=== PATIENT | male | born 1950 | race African-American/Black ===

== ENCOUNTER 2021-08-06 19:00 | Emergency (ER) | payer MEDICARE ==
[2021-08-06] MEDS ORDERED: Ondansetron PF 4 MG/2 ML Vial ONE (19:40)
[2021-08-06] MEDS ORDERED: Morphine 4 MG/ML VIAL ONE (19:40)
[2021-08-06 19:47] LABS: #Eosinphils 0.1 10x3/uL (0.0-0.5); #Neutrophils 6.7 10x3/uL (1.5-8.4); %Basophils 0.4 % (0.0-2.0); %Lymphocytes 23.4 % (18.0-47.0); %Monocytes 9.5 % (0.0-10.0); %Neutrophils 65.2 % (40.0-75.0); Hemoglobin 14.4 g/dL (13.5-17.5); Mean Corpuscular HGB CONC 32.4 g/dL (32.0-36.0); Mean Corpuscular Hemoglobin 29.4 pg (27.0-33.0); Mean Corpuscular Volume 90.6 fl (81.2-95.1); Mean Platelet Volume 11.2 fl (7.4-10.4); Platelet Count 163 10x3/uL (150-450); RBC Distribution Width 13.2 % (11.5-14.5); White Blood Cell (WBC) Count 10.3 10x3/uL (3.5-10.5)
[2021-08-06 20:01] LABS: ALT (SGPT) 66 U/L (8-55); AST (SGOT) 68 U/L (5-34); Alkaline Phosphatase 95 U/L (40-110); Anion Gap 18 mmol/L (10-20); BUN (Urea Nitrogen) 18 mg/dL (8.4-25.7); Bilirubin, Total 0.3 mg/dL (0.2-1.2); Calc. Creatinine Clearance 0 mL/min (70-130); Carbon Dioxide 23 mmol/L (23-31); Chloride 104 mmol/L (98-107); Globulin 3.3 g/dL (2.4-3.5); Glucose 142 mg/dL (83-110); Lipase 39 U/L (8-78); Potassium 3.5 mmol/L (3.5-5.1); Protein, Total 7.3 g/dL (5.8-8.1); Sodium 141 mmol/L (136-145)
[2021-08-06] MEDS ORDERED: Esmolol 2,500 MG/250 ML 250 ML ONE (20:07)
[2021-08-06] MEDS ORDERED: niCARdipine 25 MG/10 ML VIAL ONE (20:10)
[2021-08-06 20:29] LABS: PTT 21.5 sec (22.0-33.0); Prothrombin Time 11.1 sec (9.5-12.1)
[2021-08-06 21:24] LABS: SARS-CoV-2 NAA Rapid Test Not Detected (NotDetected)
== END 2021-08-06 21:14 | disposition short-term general hospital (02) ==
LOC: CSHERS 19:00
DX: I71.01 Dissection of thoracic aorta (principal); Z20.822 Contact with and (suspected) exposure to COVID-19; I10 Essential (primary) hypertension; E78.5 Hyperlipidemia, unspecified; E78.00 Pure hypercholesterolemia, unspecified; Z79.82 Long term (current) use of aspirin; Z79.899 Other long term (current) drug therapy
CPT/HCPCS: 71275; 74174; 80053; 83690; 84484; 85025; 85379; 85610; 85730; 93005; U0002; 36415; 96365; 96367; 96375; 96376; J2270; J2405